=== PATIENT | female | born 1990 ===

== ENCOUNTER 2018-07-11 14:58 | Emergency (ER) | payer BC, OTHER ==
[~2018-07-11] VITALS: Ht 160 cm; Wt 52.2 kg
--- NOTE | 2018-07-11 15:37 | NUR ---
Patient discharged to home with family in stable conditon & steady gait. Written and verbal after care instructions given to patient. Patient verbalizes understanding of instructions.
== END 2018-07-11 15:38 | disposition home or self-care (01) ==
LOC: ER 15:01
DX: S09.90XA Unspecified injury of head, initial encounter (principal); Z88.5 Allergy status to narcotic agent; V43.52XA Car driver injured in collision with other type car in traffic accident, initial encounter; Y93.89 Activity, other specified; Y92.410 Unspecified street and highway as the place of occurrence of the external cause; Y99.8 Other external cause status
CPT/HCPCS: A4663